=== PATIENT | male | born 1960 | race Caucasian/White ===

== ENCOUNTER 2018-04-07 12:51 | Observation (INO) ==
--- NOTE | 2018-04-07 13:04 | Emergency Department Report ---
General Adult HPI - General Chief complaint: Shortness of Breath/Dyspnea Stated complaint: diff breathing Time Seen by Provider: 04/07/18 13:02 Source: patient Mode of arrival: ambulatory Limitations: no limitations - History of Present Illness HPI narrative: 57-year-old male presents to the emergency department with a chief complaint of cough and shortness of breath. Patient noted that around 03:30 this morning he began wheezing with the cough and shortness of breath. Patient has a history of COPD secondary to [place]Hand spotted fever from a tick bite. Patient was at home when his symptoms began. Symptoms have been persistent in nature since onset. He does note improvement with DuoNeb treatments. His DuoNeb treatments are only lasting approximately 40-45 minutes. His cough is productive of a clear sputum. No other complaints or associated symptoms. - Related Data Home Medications Medication Instructions Recorded Confirmed Singulair (montelukast) 10 mg 10 mg PO DAILY tab 08/07/17 04/07/18 tablet ipratropium-albuterol 0.5 mg-3 3 ml INH QID PRN ml 08/07/17 04/07/18 mg(2.5 mg base)/3 mL nebulization soln Glucosa Peng 2Kcl/Chondroitin Peng 1 tab PO DAILY 04/07/18 04/07/18 [Glucosamine Chondroitin Caplet] Losartan [Cozaar] 50 mg PO DAILY 04/07/18 04/07/18 Multivitamin [One Daily] 1 each PO DAILY 04/07/18 04/07/18 PredniSONE [Deltasone 10 mg] 10 mg PO DAILY 04/07/18 04/07/18 Vitamin A 10,000 unit PO DAILY 04/07/18 04/07/18 Allergies Allergy/AdvReac Type Severity Reaction Status Date / Time No Known Allergies Allergy Verified 04/07/18 13:01 Review of Systems Constitutional: Denies: fever, chills Eyes: Denies: eye pain, vision change ENT: Denies: ear pain, throat pain Cardiovascular: Denies: chest pain, palpitations Respiratory: Reports: cough, dyspnea, wheezes. Denies: hemoptysis Gastrointestinal: Denies: abdominal pain, nausea, vomiting, diarrhea Genitourinary: Denies: urgency, dysuria Musculoskeletal: Denies: back pain, arthralgia Integumentary: Denies: erythema, rash Neurological: Denies: headache, numbness Psychiatric: Denies: anxiety, depression Endocrine: Denies: polydipsia, polyuria Hematological/Lymphatic: Denies: easy bruising, lymphadenopathy Allergic/Immunologic: Denies: facial swelling, urticaria PFSH Patient Stated Medical History Cerebrovascular Accident No Paralysis No Seizures No Syncope No Dysphagia Yes Hypertension Yes Asthma Yes Chronic Obstructive Pulmonary Yes Disease (COPD) Sleep Apnea No Other Respiratory Yes: [place] Diabetes Mellitus Type 1 No Diabetes Mellitus Type 2 No Gastroesophageal Reflux Yes: severe despite meds. Disease Osteoarthritis No Other Musculoskeletal Yes: multiple joint pain from Bird-In-Hand Spotted Fever Other Infectious Yes: Bird-In-Hand Spotted Fever Anesthesia Reactions No Blood Transfusions No Chemotherapy No Malignant Hyperthermia No Other No Depression No Substance Use Disorder Yes: marijauna edibles for pain/anxiety. Now No Clinic Medical History (Last Updated 04/07/18 @ 15:57 by Mari Alicia MD) Esophagitis determined by endoscopy (Acute Medical) EGD 08/08/17; H. pylori negative GERD (gastroesophageal reflux disease) (Acute Medical) COPD (chronic obstructive pulmonary disease) (Chronic Medical) HTN (hypertension) (Chronic Medical) Bird-In-Hand tick fever (Resolved Medical) Surgical History: Hernia x 2. Rocío Burns MD Development Technician [facility] Family History: Family History (Last Updated 04/07/18 @ 16:06 by Mari Alicia MD) Other Adopted Reviewed and noncontributory. 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 ) - Normal Exams: Head:: Normocephalic without trauma Eyes:: Pupils are PERRLA w/ EOMI, No scleral icterus, irritation, or foreign bodies noted ENMT:: No facial trauma, nasal exudates, pharyngeal erythema, or exudates are noted Dental: No fractured, loose, or missing teeth noted Neck:: Full range of motion, without adenopathy, JVD, bruits or thyromegaly Chest/Respirations:: with good airflow (Bilateral end expiratory wheezes. ), and symmetry bilaterally Cardiovascular:: Regular rate and rhythm, without murmur or gallop, Pulses 2+ all extremities, capillary refill, <2 seconds all extremities Abdomen:: Bowel sounds positive, soft, non-tender, non-distended, no hepatosplenomegaly, masses or bruits noted Lymphatic:: No lymphadenopathy, or lymphedema noted Musculoskeletal:: No tenderness, or deformity noted, good range of motion, all extremities Integumentary:: No rashes, hives, or bruising noted, hair and nails, without abnormality Neurological:: Patient is alert, and oriented, cranial nerves, motor/sensory/ cerebellar, exams w/o gross deficits, to observation Psychiatric:: Patient exhibits, appropriate attention, emotion and affect Course Vital Signs Temperature 98.5 F 04/07/18 12:55 Pulse Rate 95 04/07/18 12:55 Respiratory Rate 28 H 04/07/18 12:55 Blood Pressure 190/95 H 04/07/18 12:55 Pulse Oximetry 95 04/07/18 12:55 Temperature 97.2 F 04/07/18 15:26 Pulse Rate 84 04/07/18 17:26 Respiratory Rate 18 04/07/18 17:26 Blood Pressure 151/76 H 04/07/18 15:26 Pulse Oximetry 94 04/07/18 17:26 Medical Decision Making - [facility] Narrative Medical decision making narrative: Labs / imaging were discussed in detail with the patient and family and questions are answered. Patient is given multiple DuoNeb treatments in the emergency department. He is given Solu-Medrol 125 mg IV 1. He is given doxycycline 100 mg intravenously 1 after blood cultures and lactic acid are obtained. Urinalysis is pending at time of admission to the hospital. Patient is admitted due to the need for recurrent DuoNeb treatment and persistence of symptoms. Patient and family are in agreement with the current plan of management. He is admitted to the hospital in improved condition. Patient is discussed with Dr. Lee who is in agreement with the current plan of management and agrees to accept the patient to his service. - Differential Diagnosis COPD, PNA, viral Syndrome, Metabolic processes - Lab Data Result diagrams: 04/07/18 13:16 04/07/18 13:16 Lab Results 04/07/18 04/07/18 04/07/18 Range/Units 13:16 13:16 13:49 WBC 10.3 (4.5-11.0) T/MM3 RBC 5.12 (4.50-5.90) M/MM3 Hgb 14.7 (13.5-17.5) GM/DL Hct 43.0 (41-53) % MCV 84.0 (80-100) UM3 MCH 28.7 (26-34) UUG MCHC 34.2 (31-37) GM/DL RDW Std Deviation 42.7 (36.9-50.2) FL Plt Count 394 (130-400) T/MM3 MPV 8.7 L (9.4-12.4) UM3 Immature Gran % (Auto) 0.2 (0.0-0.5) % Neut % (Auto) 56.2 (33-66) % Lymph % (Auto) 29.0 (23-45) % [place] % (Auto) 5.2 (0-9.0) % Eos % (Auto) 8.8 H (0-4) % Baso % (Auto) 0.6 (0-2) % Neut # (Auto) 5.8 (1.8-7.7) T/MM3 Lymph # (Auto) 3.0 (1-4.8) T/MM3 [place] # (Auto) 0.5 (0-0.8) T/MM3 Eos # (Auto) 0.9 H (0-0.5) T/MM3 Baso # (Auto) 0.1 (0-0.2) T/MM3 Abs Immat Gran (auto) 0.02 (0.00-0.03) T/MM3 Turbidity < 20 (0-20) Sodium 146 H (134-144) MEQ/L Potassium 3.5 L (3.6-5) MEQ/L Chloride 107 (98-107) MEQ/L Carbon Dioxide 23 (22-30) MEQ/L Anion Gap 16 H (5-15) meq/L BUN 16.0 (9-20) MG/DL Creatinine 0.7 L (0.8-1.5) mg/dL GFR Calculation 117 BUN/Creatinine Ratio 23 (6-26) RATIO Glucose 114 H (75-110) MG/DL Calculated Osmolality 283 H (261-280) MOSM/KG Calcium 10.1 (8.4-10.2) MG/DL Total Bilirubin 0.80 (0.20-1.30) MG/DL Icterus Index < 2 (0-7) AST 48 (17-59) U/L ALT 41 (1-50) U/L Alkaline Phosphatase 142 H (38-126) U/L Troponin I 0.031 (0-0.12) ng/ml Total Protein 8.1 (6.3-8.2) g/dL Albumin 4.9 (3.5-5.0) g/dL Globulin 3.2 (2.4-3.6) G/DL Albumin/Globulin Ratio 1.5 (1.1-2.2) RATIO Plasma Lactate 2.6 H (0.6-2.2) MMOL/L Specimen Hemolysis < 15 (0-25) - Radiology Data CXR - No obvious acute processes. - EKG Data EKG #1 EKG results narrative: Sinus Rhythm. 90 bpm. No STEMI. Disposition Clinical Impression: Acute exacerbation of chronic obstructive airways disease Disposition: 02 To [facility] Condition: Improved Time of Disposition: 14:55 (Admit. Dr. Lee. ) - Seen By: physician
[2018-04-07] MEDS ORDERED: METHYLPREDNISOLONE SOD SUCC 125mg/2ml INJECTION IVP ONE (13:05)
[2018-04-07] MEDS ORDERED: ALBUTEROL/IPRATROPIUM 2.5mg-0.5mg/3ml NEB AEROSOL ONE ×4 (13:05→16:28)
[2018-04-07] MEDS: SALINE FLUSH 10ml SYRINGE IVF PRN ×2 (13:14→22:25)
[2018-04-07] MEDS ORDERED: DOXYCYCLINE 100 MG in NS 250ml 250 ML IV ONE (14:18)
[2018-04-07] MEDS ORDERED: ACETAMINOPHEN 500 MG TABLET PO SCH (15:15)
[2018-04-07 15:31] VITALS: BMI 29.7
--- NOTE | 2018-04-07 16:16 | History & Physical Report ---
History of Present Illness Date: 04/07/18 Chief complaint: difficulty breathing HPI: Gerson Alfaro is a 57-year-old with COPD. Approximately 3 weeks ago, he became sick with a respiratory infection and was started on a Z-Mata and a long prednisone taper of 20 mg daily 10 days and then 10 mg daily 2 days. He finished the prednisone on 04/05/18 and was back to his baseline. He states that he felt "cruddy" on 04/06/18, but that is fairly typical for him because of his history of [place] spotted fever which causes arthralgias. He has had a cough, and the sputum is changing colors from clear to intensity yellow and green. He denies sinus problems. He has a severe headache. He denies fevers or chills. He has not had any abdominal pain, nausea, vomiting, diarrhea, constipation. His appetite has been stable. He denies any dysuria but has noticed with HIV test to urinate more frequently. He denies any leg swelling or recurrent rashes. He has some scratches on his legs, but attributes this to his dogs. At 0330 on 04/07/18, he woke up and couldn't breathe. His chest and lungs felt tight as they always do when he has an exacerbation. He took 10 puffs on his albuterol inhaler and then used his nebulizer with DuoNeb for 2-1/2 hours straight before he was able to catch his breath. At one point he thought he would pass out, but he never did. He presented to [facility] emergency department for evaluation. While he was never hypoxic, he was extremely dyspneic. He was given 3 DuoNeb treatments and Solu-Medrol 125 mg IV. He was also started on doxycycline. Labs showed a normal white count of 10.3. Chemistries showed a slightly high sodium at 146, slightly low potassium at 3.5 , and a high lactate of 2.6. CXR was negative. He continued to have labored breathing and was wheezing, and was subsequently admitted to observation status under the hospitalist service. Review of Systems All systems PM: 10-point ROS was reviewed, no additional remarkable complaints except - Constitutional Constitutional: Present: as per HPI - EENMT Eyes: Absent: blurry vision, change in vision Nose: Absent: obstruction Mouth/Throat: Absent: sore throat - Cardiovascular Cardiovascular: Present: as per HPI Vascular: Present: see HPI - Respiratory Respiratory: Present: as per HPI - Gastrointestinal Gastrointestinal: Present: as per HPI - Genitourinary Genitourinary: Present: as per HPI - Musculoskeletal Musculoskeletal: Present: as per HPI - Integumentary/Breasts Integumentary: Present: as per HPI, other (he got a new tattoo on his right thigh 2 days ago) - Neurological Neurological: Absent: numbness, paresthesias - Psychiatric Psychiatric: Absent: behavioral changes - Endocrine Endocrine: Absent: palpitations - Hematologic/Lymphatic Hematologic/Lymphatic: Absent: lymphadenopathy - Allergic/Immunologic Allergic/Immunologic: Present: seasonal rhinorrhea Past Medical History Medical History: Medical History (Last Updated 04/07/18 @ 15:57 by Mari Alicia MD) Esophagitis determined by endoscopy EGD 08/08/17; H. pylori negative GERD (gastroesophageal reflux disease) COPD (chronic obstructive pulmonary disease) HTN (hypertension) [place] tick fever Surgical History: Bilateral inguinal hernia. Bronchoscopy lavage and drainage of right lower lobe bronchitis 03/30/16. Colonoscopy 2013. EGD 2016 showing marked distal esophagitis and moderate gastritis - Dr. Cisneros Family History: Family History (Last Updated 04/07/18 @ 16:06 by Mari Alicia MD) Other Adopted Family History: As Above - Social History Smoking status: Never smoker (admits to smoking a couple cigarettes when he was a teenager, but no smoking since then) Substance use type: marijuana Alcohol intake frequency: does not drink Household members: spouse Social history: Rocío Burns MD Entry Level Account Executive Willy Cortez MD PCP Medications Home Medications Medication Instructions Recorded Confirmed Type Singulair (montelukast) 10 mg 10 mg PO DAILY tab 08/07/17 04/07/18 History tablet ipratropium-albuterol 0.5 mg-3 3 ml INH QID PRN ml 08/07/17 04/07/18 History mg(2.5 mg base)/3 mL nebulization soln Glucosa Peng 2Kcl/Chondroitin Peng 1 tab PO DAILY 04/07/18 04/07/18 History [Glucosamine Chondroitin Caplet] Losartan [Cozaar] 50 mg PO DAILY 04/07/18 04/07/18 History Multivitamin [One Daily] 1 each PO DAILY 04/07/18 04/07/18 History PredniSONE [Deltasone 10 mg] 10 mg PO DAILY 04/07/18 04/07/18 History Vitamin A 10,000 unit PO DAILY 04/07/18 04/07/18 History Allergies Allergy/AdvReac Type Severity Reaction Status Date / Time No Known Allergies Allergy Verified 04/07/18 13:01 Exam Vital Signs: Temperature 97.2 F 04/07/18 15:26 Pulse Rate 84 04/07/18 15:26 Respiratory Rate 18 04/07/18 15:26 Blood Pressure 151/76 H 04/07/18 15:26 Pulse Oximetry 94 04/07/18 15:26 Height/Weight/BMI: Height 1.88 m Weight 105 kg Body Mass Index 29.7 - Constitutional Present: mild distress, well nourished, well developed - Routine HEENT Exam Head: Present: normocephalic Eye: Present: PERRL. Absent: conjunctival icterus, scleral injection ENT: Present: mucous membranes dry, oropharynx clear - Routine Neck Exam Present: supple. Absent: lymphadenopathy - Routine Respiratory Exam Present: accessory muscle use, prolonged expiratory phase, wheezes, diminished air movement - Routine Cardiovascular Exam Present: RRR, S1, S2 - Routine Abdominal Exam Present: soft, normoactive bowel sounds, non distended, non tender - Routine Extremities Exam Present: no edema, pulses intact - Routine Skin Exam Present: intact, dry, warm Comments: Tattoo to right thigh was done 2 days earlier and is covered with a transparent dressing - Routine Neurological Exam Present: alert, oriented X3, CN II-XII intact, moving all extremities, vision grossly intact, hearing grossly intact, normal speech, tremors. Absent: facial asymmetry - Routine Psychiatric Exam Present: normal affect, normal thought process, cooperative Results - Labs CBC & Chem 7: 04/07/18 13:16 04/07/18 13:16 Assessment and Plan (1) Acute exacerbation of chronic obstructive airways disease Current visit: Yes Status: Acute Assessment and Plan: Assessment COPD exacerbation Elevated lactate, sepsis unlikely Hypernatremia, present on admission. Hypokalemia, present on admission [place] spotted fever. Chronic pain/arthralgias secondary to above. Hypertension GERD/esophagitis Plan Admit to observation status under the hospitalist service. Start DuoNeb treatments every 4 hours while awake as well as when necessary. Solu-Medrol 125 mg every 6 hours. Start acapella. Sputum culture if able. Blood cultures have been drawn. Suspect lactate secondary to COPD exacerbation rather than severe sepsis, but will recheck lactate to ensure downward trend. Continue doxycycline, but will change to oral administration. Blood pressure has been elevated in the ED. He takes Cozaar at home. Will have IV hydralazine available if SBP >180 or DBP >100 mmHg. DNR status. DVT Prophylaxis: SCD's Resuscitation Status: Do Not Resuscitate - Physician Narrative Physician: Mari Alicia MD Narrative: Date: 04/07/18 Time: 1700 I have independently evaluated and examined this patient. I reviewed the chart, the patient's history, and the SESSIONS CLERK/PA's documented findings as above. We discussed and formulated the assessment and plan as above with additions as below: Mr. Alfaro has recently been treated for an outpatient COPD exacerbation with azithromycin and 10 day prednisone course completed 2-3 days ago. He was doing well until 3 AM when he woke was abrupt, severe dyspnea. He utilized multiple breathing treatments at home with mild improvement before presenting to the emergency room or IV steroids were initiated and additional treatments given. Is admitted now for further management of COPD exacerbation. Respirations are moderately labored at the time of my assessment with prolonged expiratory phase and diffuse wheezing. No rhonchi or crackles are appreciated Regular rhythm with S1-S2 No lower extremity edema Chest x-ray reviewed by myself revealing clear lung carl and normal sized heart. EKG demonstrates sinus rhythm with normal waveforms, no ST/T-wave abnormalities- baseline erratic. Acute COPD exacerbation-continue steroid treatments with aggressive breathing treatments; sputum culture be obtained. History does not suggest URI viral component but if any indication of URI respiratory viral panel will be obtained. Monitor blood sugars over the next 24 hours with high-dose steroids; if unremarkable we'll discontinue thereafter. Hold/outpatient records reviewed. Hospital Course Summary Disclaimer: The visit summary below is not to be considered part of the above Progress Note. Hospital Course: 04/07 Admit to observation status under the hospitalist service. Start DuoNeb treatments every 4 hours while awake as well as when necessary. Solu-Medrol 125 mg every 6 hours. Start acapella. Sputum culture if able. Blood cultures have been drawn. Suspect lactate secondary to COPD exacerbation rather than severe sepsis, but will recheck lactate to ensure downward trend. Continue doxycycline, but will change to oral administration. Blood pressure has been elevated in the ED. He takes Cozaar at home. Will have IV hydralazine available if SBP >180 or DBP >100 mmHg. DNR status. Addendum entered and electronically signed by Kylah Mcqueen APRN 04/07/18 16: 40: Will also replace potassium orally. External records were reviewed.
[2018-04-07] MEDS ORDERED: ALBUTEROL/IPRATROPIUM 2.5mg-0.5mg/3ml NEB AEROSOL PRN (16:28)
[2018-04-07] MEDS ORDERED: HYDRALAZINE 20 MG/ML INJECTION IVP PRN (16:30)
[2018-04-07] MEDS ORDERED: INSULIN ASPART 100unit/ml INJECTION SQ PRN (17:09)
[2018-04-07] MEDS: ALBUTEROL/IPRATROPIUM 2.5mg-0.5mg/3ml NEB AEROSOL SCH ×3 (18:55→23:38)
[2018-04-07] MEDS: METHYLPREDNISOLONE SOD SUCC 125mg/2ml INJECTION IVP SCH (22:24)
[2018-04-08] MEDS ORDERED: HYDROCODONE/APAP 5mg/325mg TABLET PO PRN (00:38)
[2018-04-08] MEDS: ALBUTEROL/IPRATROPIUM 2.5mg-0.5mg/3ml NEB AEROSOL SCH ×4 (02:22→14:47)
[2018-04-08] MEDS: METHYLPREDNISOLONE SOD SUCC 125mg/2ml INJECTION IVP SCH ×2 (03:22→09:05)
[2018-04-08] MEDS: SALINE FLUSH 10ml SYRINGE IVF PRN (03:23)
[2018-04-08] MEDS ORDERED: PANTOPRAZOLE 40 MG TABLET PO SCH (06:30)
--- NOTE | 2018-04-08 07:46 | XRay Report ---
Indication: cough PROCEDURE: XR chest 1V: Encounter: Initial Comparison: None FINDINGS: The lungs are clear. There is no abnormal airspace opacity, pleural effusion or pneumothorax identified. The heart size, pulmonary vasculature and mediastinum are within normal limits. No significant skeletal abnormality is seen. IMPRESSION: No acute cardiopulmonary abnormality. .
[2018-04-08] MEDS ORDERED: LOSARTAN 50 MG TABLET PO SCH (09:00)
[2018-04-08 09:04] VITALS: TEMP 96.3
[2018-04-08] MEDS ORDERED: ACETAMINOPHEN 325 MG TABLET PO PRN (09:52)
[2018-04-08 12:13] VITALS: O2SAT 96
[2018-04-08 12:32] VITALS: BP 158/88; PULSE 105
--- NOTE | 2018-04-08 12:43 | Discharge Summary ---
Discharge Information Date of admission: 04/07/18 15:03 Anticipated date of discharge: 04/08/18 Attending Physician: Vinod Singh MD Primary care physician: Willy Cortez DO - Discharge Diagnosis (1) Acute exacerbation of chronic obstructive airways disease Status: Acute COPD exacerbation - improved Elevated lactate, sepsis unlikely, most likely related to COPD Hypernatremia, present on admission - resolved Hypokalemia, present on admission - resolved Thrombocytosis, not present on admission [place] spotted fever. Chronic pain/arthralgias secondary to above. Hypertension GERD/esophagitis - Laboratory Labs: 04/08/18 04:26 04/08/18 04:26 - Radiology Radiology: CXR - No acute cardiopulmonary abnormality. History of Present Illness HPI: Gerson Alfaro is a 57-year-old with COPD. Approximately 3 weeks ago, he became sick with a respiratory infection and was started on a Z-Mata and a long prednisone taper of 20 mg daily 10 days and then 10 mg daily 2 days. He finished the prednisone on 04/05/18 and was back to his baseline. He states that he felt "cruddy" on 04/06/18, but that is fairly typical for him because of his history of [place] spotted fever which causes arthralgias. He has had a cough, and the sputum is changing colors from clear to intensity yellow and green. He denies sinus problems. He has a severe headache. He denies fevers or chills. He has not had any abdominal pain, nausea, vomiting, diarrhea, constipation. His appetite has been stable. He denies any dysuria but has noticed with HIV test to urinate more frequently. He denies any leg swelling or recurrent rashes. He has some scratches on his legs, but attributes this to his dogs. At 0330 on 04/07/18, he woke up and couldn't breathe. His chest and lungs felt tight as they always do when he has an exacerbation. He took 10 puffs on his albuterol inhaler and then used his nebulizer with DuoNeb for 2-1/2 hours straight before he was able to catch his breath. At one point he thought he would pass out, but he never did. He presented to [facility] emergency department for evaluation. While he was never hypoxic, he was extremely dyspneic. He was given 3 DuoNeb treatments and Solu-Medrol 125 mg IV. He was also started on doxycycline. Labs showed a normal white count of 10.3. Chemistries showed a slightly high sodium at 146, slightly low potassium at 3.5 , and a high lactate of 2.6. CXR was negative. He continued to have labored breathing and was wheezing, and was subsequently admitted to observation status under the hospitalist service. Objective Vital signs: Temperature 96.3 F L 04/08/18 09:01 Pulse Rate 105 H 04/08/18 12:31 Respiratory Rate 30 H 04/08/18 12:07 Blood Pressure 158/88 H 04/08/18 12:31 Pulse Oximetry 96 04/08/18 12:07 Height/Weight/BMI: Height 1.88 m Weight 104.5 kg Body Mass Index 29.7 - Constitutional Present: well nourished, well developed, obese - Routine HEENT Exam Head: Present: normocephalic Eye: Absent: conjunctival icterus, scleral injection - Routine Respiratory Exam Present: wheezes, diminished air movement (improved from yesterday) - Routine Cardiovascular Exam Present: RRR, S1, S2 - Routine Abdominal Exam Present: soft, normoactive bowel sounds, non distended, non tender - Routine Extremities Exam Present: no edema - Routine Skin Exam Present: intact, dry, warm - Routine Neurological Exam Present: alert, oriented X3, normal speech - Routine Psychiatric Exam Present: normal affect, normal thought process, cooperative Hospital Course This is a general summary of the patient's hospital course. For more details refer to the complete medical record. Hospital course: 04/07/18: Admitted to observation status. COPD exacerbation was treated with scheduled DuoNeb, high-dose IV steroids, doxycycline. He maintained sats on room air. Lactate was elevated without suspicion for sepsis. BP elevated and IV hydralazine was available but not given. KDur given for hypokalemia. 04/08/18: Discharged home. Still with wheezing but pt feels wheezing and dyspnea is at baseline & feels comfortable going home. Will Rx long taper prednisone and doxy x6 days. 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 Cortez. BP elevated - recommended keeping a log of trends and discussing further with Dr. Cortez. Mild thrombocytosis noted on discharge. K improved to 3.9. Time spent with patient: discharge greater than 30 minutes Resuscitation Status: Do Not Resuscitate Discharge Plan - Discharge Disposition Discharge Date: 04/08/18 Disposition: 01 Discharged Home, Self-Care *Condition: Improved Reason For Visit (Visit label in EMR): COPD Exacerbation - Discharge Medications *Discharge Medications: New Doxycycline [Vibramycin] 100 mg PO BID #12 tab predniSONE [Prednisone] 20 mg PO WB #20 tab Continue Multivitamin [One Daily] 1 each PO DAILY Glucosa Peng 2Kcl/Chondroitin Peng [Glucosamine Chondroitin Caplet] 1 tab PO DAILY Vitamin A 10,000 unit PO DAILY Losartan [Cozaar] 50 mg PO DAILY Singulair (montelukast) 10 mg tablet 10 mg PO DAILY tab ipratropium-albuterol 0.5 mg-3 mg(2.5 mg base)/3 mL nebulization soln 3 ml INH QID PRN ml PRN Reason: wheezing Discontinued PredniSONE [Deltasone 10 mg] 10 mg PO DAILY - Discharge Packet/Instructions *Diet: Regular *Activity: As tolerated *Pain Management/Treatment: Resume routine pain medication at home. *Wound Care: Not applicable. Additional Instructions: Continue breathing treatments at home. Keep a record of your blood pressures and discuss whether or not you need additional blood pressure medicine with Dr. Cortez. *Expected Signs/Symptoms: You may have intermittent flareups of wheezing and/or coughing but overall should continue to improve. *Notify Physician if: Increased shortness of breath or wheezing, chest pain, passing out, or any new concerns. *During Business Hours Contact: Dr. Cortez's office *After Business Hours Contact: The on-call provider for Dr. Cortez or your electronic warfare technical. *Pending Lab/Results: No Pending Lab - Referrals/Follow Up *Referrals/Follow Up: Willy Cortez DO [Primary Care Provider] - 1 Week - Patient Handouts - Dismissal Complete Discharge Instructions are:: Complete Physician Narrative - Narrative Attestation Narrative: Date: 04/08/18 Time: 4493
[2018-04-08 14:55] VITALS: RESP 18
[2018-04-08] MEDS ORDERED: MONTELUKAST 10 MG TABLET PO SCH (21:00)
== END 2018-04-08 15:09 | disposition home or self-care (01) ==
LOC: ED 12:51 → MED 12:51 → SUATTDRO 15:03 → MED 15:24
PROVIDERS: ADMIT Internal Medicine; ATTEND Internal Medicine